=== PATIENT | female | born 1975 | race Caucasian/White ===

== ENCOUNTER 2017-09-05 12:43 | Outpatient (CLI) | payer OTHER | END 2017-09-05 12:44 | disposition home or self-care (01) | LOC: DTY/OP 12:43 | PROVIDERS: ATTEND Specialist | DX: Z01.818 Encounter for other preprocedural examination (principal); E66.01 Morbid (severe) obesity due to excess calories | CPT/HCPCS: 97802 ==

== ENCOUNTER 2017-10-12 09:58 | Outpatient (CLI) | payer MEDICARE, MEDICAID ==
--- NOTE | 2017-10-13 08:27 | EKG ---
Test Reason : Blood Pressure : / mmHG Vent. Rate : 072 BPM Atrial Rate : 072 BPM P-R Int : 146 ms QRS Dur : 084 ms QT Int : 392 ms P-R-T Axes : 039 063 -02 degrees QTc Int : 429 ms Poor data quality, interpretation may be adversely affected Normal sinus rhythm ST abnormality, possible digitalis effect /Nonspecific Abnormal QRS-T angle, consider primary T wave abnormality Abnormal ECG No previous ECGs available Confirmed by STEPHON NORWOOD ([id number]) on 10/13/2017 8:27:14 AM Referred By: JUDIE Confirmed By:STEPHON NORWOOD
== END 2017-10-12 09:59 | disposition home or self-care (01) ==
LOC: LABBT 09:58
PROVIDERS: ATTEND Specialist
DX: Z01.818 Encounter for other preprocedural examination (principal); E66.01 Morbid (severe) obesity due to excess calories; Z68.36 Body mass index [BMI] 36.0-36.9, adult; R94.31 Abnormal electrocardiogram [ECG] [EKG]
CPT/HCPCS: 93005; 93010

== ENCOUNTER 2017-10-12 12:00 | Inpatient (IN) | payer MEDICARE, MEDICAID ==
[2017-10-16] MEDS ORDERED: Bupivacaine/Epinephrine 0.25% 30 ML VIAL ONE (06:35)
[2017-10-16] MEDS ORDERED: Scopolamine 1.5 mg/72 hour Patch ONE (06:39)
[2017-10-16] MEDS ORDERED: Ketorolac Tromethamine 30 MG/ML VIAL ONE (06:39)
[2017-10-16] MEDS ORDERED: cefOXitin 2 GM, Syringe 1 ML in Sterile Water 10 ML SLOW IVP SCH ×4 (06:45)
[2017-10-16] MEDS ORDERED: Heparin 5,000 UNITS/ML VIAL ONE ×2 (07:07)
[2017-10-16] MEDS ORDERED: Fentanyl 250 MCG/5 ML VIAL ONE (07:28)
[2017-10-16] MEDS ORDERED: Midazolam HCl 2 mg/2 ml Vial ONE (07:28)
[2017-10-16] MEDS ORDERED: HYDROmorphone 0.5 MG/0.5 ML SYRINGE ONE (08:39)
[2017-10-16] MEDS ORDERED: Promethazine HCl 25 MG/ML VIAL IM PRN ×3 (08:43→10:49)
[2017-10-16] MEDS ORDERED: Ondansetron HCl/PF 4 MG/2 ML Vial IVP PRN ×3 (08:43→10:49)
[2017-10-16] MEDS ORDERED: Meperidine HCl/PF 25 MG/ML VIAL SLOW IVP PRN ×2 (08:43)
[2017-10-16] MEDS ORDERED: Promethazine HCl 25 MG/ML VIAL SLOW IVP PRN ×2 (08:43)
[2017-10-16] MEDS ORDERED: Meperidine HCl/PF 25 MG/ML VIAL ONE (09:11)
[2017-10-16] MEDS ORDERED: Fentanyl 100 MCG/2 ML VIAL ONE ×2 (09:11→09:41)
[2017-10-16] MEDS ORDERED: Dextrose 5% in Water 1,000 ML IV PRN (10:49)
[2017-10-16] MEDS ORDERED: Hydrocodone-Acetamin 15 ML UDCUP PO PRN (10:49)
[2017-10-16] MEDS ORDERED: diphenhydrAMINE 50 MG/ML VIAL IVP PRN (10:49)
[2017-10-16] MEDS ORDERED: Insulin Regular 300 UNITS/3 ML VIAL SC PRN (10:49)
[2017-10-16] MEDS ORDERED: Morphine 4 MG/ML VIAL SLOW IVP PRN ×2 (10:49)
[2017-10-16] MEDS ORDERED: Dextrose 50% Abboject 50 ML SYRINGE SLOW IVP PRN (10:49)
[2017-10-16] MEDS ORDERED: hydrALAZINE 20 MG/ML VIAL SLOW IVP PRN (10:49)
[2017-10-16] MEDS: Ketorolac Tromethamine 30 MG/ML VIAL IVP SCH ×2 (12:36→20:01)
[2017-10-16] MEDS: 1/2 NS w/KCL 20 mEq 1,000 ML IV SCH ×2 (12:38→20:02)
[2017-10-16] MEDS ORDERED: Ondansetron ODT 4 MG TAB PO PRN (15:19)
[2017-10-16] MEDS ORDERED: PROPOFOL 200 MG/20 ML VIAL ONE (16:30)
[2017-10-16] MEDS ORDERED: Lidocaine 1% PF 5 ML VIAL ONE (16:30)
[2017-10-16] MEDS ORDERED: Ondansetron HCl/PF 4 MG/2 ML Vial ONE (16:30)
[2017-10-16] MEDS ORDERED: Glycopyrrolate 0.2 MG/ML 5 ML SYRINGE ONE (16:30)
[2017-10-16 17:44] VITALS: BMI 34.4
[2017-10-16] MEDS ORDERED: Enoxaparin Sodium 40 MG/0.4 ML SYRINGE SC SCH (21:00)
[2017-10-16] MEDS ORDERED: clonazePAM 0.5 MG TAB PO SCH (21:00)
--- NOTE | 2017-10-16 21:45 | OP ---
DATE OF PROCEDURE: 10/16/2017 PREOPERATIVE DIAGNOSIS: Morbid obesity. POSTOPERATIVE DIAGNOSIS: Morbid obesity. SURGEON: Matthew Zepeda M.D. ANESTHESIA: General endotracheal. INDICATIONS: The patient is a 42-year-old white female. She presented with morbid obesity and sympt oms referable to her obesity. She has undergone preoperative evaluation and education and presents a t this time for sleeve gastrectomy. OPERATIVE PROCEDURE IN DETAIL: Informed consent was obtained. The patient was taken to the operatin g room where general endotracheal anesthesia was obtained with the patient in supine position. Abdom en was prepped with ChloraPrep and draped in sterile fashion. Local anesthetic was infiltrated and 5 -mm supraumbilical incision was created through which a Veress needle was passed into the peritoneal cavity and pneumoperitoneum established using carbon dioxide up to a pressure of 15 mmHg. A 5-mm tro car port was passed through the same incision. Laparoscopic camera was passed through this port. Un darcy direct vision, 4 additional ports were placed including bilateral subcostal 5 mm ports, a 12 mm r ight paramedian port and a 15 mm left paramedian port. A 5 mm epigastric incision was created throug h which Nathansen retractor was passed into the abdominal cavity and used to retract the left lobe of the liver. Attention was turned to the pylorus. This was identified and beginning about 4 cm proximal to the py lorus, the greater curvature was dissected using the LigaSure device, taking down all omental and vas cular tissue in an ascending fashion around to the angle of His. Meticulous hemostasis was maintaine d during this procedure. Posterior adhesions were taken down also using the LigaSure device. The le ft alan of the diaphragm was identified and gently dissected. The ViSiGi device was then advanced into the stomach where it was positioned at the pylorus under dir ect vision. The ViSiGi was then placed to suction, leading to complete gastric decompression and eas y visualization of the ViSiGi along the lesser curve. The gastrectomy was performed using a series of fires of the [place] stapler. The division was begun 4 cm from the pylorus. In an ascending fashion, the stapler was fired using using a green load foll owed by a gold load followed by a series of blue loads up to the angle of His. The ViSiGi was used a s a guide to calibrate the sleeve creation. Great care was taken to avoid narrowing of the incisura or the gastroesophageal junction. Once the transection was complete, the sleeve was inflated using the ViSiGi device while irrigating a long the staple line. There was no evidence of air leak or bleed along the staple line. The ViSiGi device was then taken out of the stomach and removed under direct vision. The resected segment of the stomach was removed through the 15 mm port site. The fascia at the 15 mm port was closed with 0 Vicryl suture using a GraNee needle in a ljmahm-na-cddom fashion. All irrigation within the abdomen was aspirated. The surgical site was thoroughly inspected and foun d to be hemostatic. All ports and instruments removed under direct vision. Pneumoperitoneum was car efully evacuated. Marcaine 0.25% with epinephrine was infiltrate in each port site and skin edges we re approximated with 4-0 Monocryl subcuticular suture. Dermabond was placed externally. There were no complications. Blood loss was negligible. Patient tolerated the procedure well and was taken to recovery room in stable condition.
[2017-10-16] MEDS: Buprenorphine 8mg/Naloxone 2mg per 1 FILM SL SCH (23:04)
[2017-10-17] MEDS: Ketorolac Tromethamine 30 MG/ML VIAL IVP SCH ×2 (01:41→06:21)
[2017-10-17] MEDS: 1/2 NS w/KCL 20 mEq 1,000 ML IV SCH (03:46)
[2017-10-17 05:03] LABS: #Lymphocytes 2.9 thou/uL (1.20-3.40); #Neutrophils 11.8 thou/uL (1.40-6.50); %Basophils 0.1 % (0.0-1.0); %Eosinophils 0.2 % (0.0-10.0); %Lymphocytes 18.3 % (21.0-51.0); %Monocytes 6.2 % (0.0-10.0); %Neutrophils 75.3 % (42.0-75.0); Hemoglobin 11.4 g/dL (12.0-16.0); Mean Corpuscular HGB CONC 34.3 g/dL (32.0-36.0); Mean Corpuscular Hemoglobin 30.6 pg (27.0-31.0); Mean Corpuscular Volume 89.4 fl (81.0-99.0); Mean Platelet Volume 7.6 fL (7.4-10.4); Platelet Count 224 thou/uL (130-400); RBC Distribution Width 11.4 % (11.5-14.5); Red Blood Cell (RBC) Count 3.72 mill/uL (4.20-5.40); White Blood Cell (WBC) Count 15.7 thou/uL (4.8-10.8)
[2017-10-17 05:14] LABS: Anion Gap 10 mmol/L (10-20); BUN (Urea Nitrogen) 8 mg/dL (7.0-18.7); Calc. Creatinine Clearance 134 mL/min (70-130); Calcium 8.5 mg/dL (7.8-10.44); Carbon Dioxide 25 mmol/L (22-29); Chloride 106 mmol/L (98-107); Estimated GFR-MDRD 81; Glucose 100 mg/dL (70-105); Potassium 4.9 mmol/L (3.5-5.1); Sodium 136 mmol/L (136-145)
[2017-10-17] MEDS ORDERED: Levothyroxine Sodium 25 MCG TAB PO SCH (06:00)
[2017-10-17] MEDS: Buprenorphine 8mg/Naloxone 2mg per 1 FILM SL SCH (06:12)
[2017-10-17 07:40] VITALS: BP 109/57; TEMP 98.4
[2017-10-17] MEDS ORDERED: Pantoprazole 40 MG VIAL IVP SCH ×2 (09:00)
[2017-10-21] MEDS ORDERED: BYDUREON SC SCH (09:00)
== END 2017-10-17 10:35 | disposition home or self-care (01) | DRG 621 ==
LOC: SURG A 10-16 06:04 → SURG B 10-16 10:48
PROVIDERS: ADMIT Specialist; ATTEND Specialist
PROC: 0DB64Z3 Excision of Stomach, Percutaneous Endoscopic Approach, Vertical (ICD-10-PCS; principal; 2017-10-16)
DX: E66.01 Morbid (severe) obesity due to excess calories (principal); E11.9 Type 2 diabetes mellitus without complications; Z68.36 Body mass index [BMI] 36.0-36.9, adult
CPT/HCPCS: 36415; 36416; 80048; 85025; 88307; 88312; 94760; 96374; A4216; C9113; J0131; J0694; J1170; J1644; J1650; J1885; J2001; J2175; J2250; J2270; J2405; J2704; J3010

== ENCOUNTER 2020-01-08 11:10 | Outpatient (CLI) | payer MEDICARE, MEDICAID ==
--- NOTE | 2020-01-08 12:31 | MMO ---
Bilateral MAMMO Bilat Screen [facility]. CLINICAL HISTORY: Patient is 44 years old and is seen for screening. The patient has the following family history of breast cancer: 2 maternal aunts. The patient has no personal history of cancer. VIEWS: The views performed were: bilateral craniocaudal with tomosynthesis and bilateral mediolateral oblique with tomosynthesis. FILMS COMPARED: The present examination has been compared to prior imaging studies performed at [facility] on 12/28/2014 and 05/22/2017. This study has been interpreted with the assistance of computer-aided detection. MAMMOGRAM FINDINGS: There are scattered fibroglandular densities. There are stable benign appearing calcifications seen in both breasts. There are no suspicious masses, suspicious calcifications, or new areas of architectural distortion. IMPRESSION: THERE IS NO MAMMOGRAPHIC EVIDENCE OF MALIGNANCY. A ROUTINE FOLLOW-UP MAMMOGRAM IN 1 YEAR IS RECOMMENDED. THE RESULTS OF THIS EXAM WERE SENT TO THE PATIENT. ACR BI-RADS Category 2 - Benign finding MAMMOGRAPHY NOTE: 1. A negative mammogram report should not delay a biopsy if a dominant of clinically suspicious mass is present. 2. Approximately 10% to 15% of breast cancers are not detected by mammography. 3. Adenosis and dense breasts may obscure an underlying neoplasm. Reported by: CONCHITA CHIANG MD Electonically Signed: [id number]
== END 2020-01-08 11:11 | disposition home or self-care (01) ==
LOC: BICMAMMO 11:10
PROVIDERS: ATTEND Family Medicine
DX: Z12.31 Encounter for screening mammogram for malignant neoplasm of breast (principal); Z80.3 Family history of malignant neoplasm of breast
CPT/HCPCS: 77063; 77067

== ENCOUNTER 2022-05-18 10:52 | Outpatient (CLI) | payer OTHER | END 2022-05-18 10:53 | disposition home or self-care (01) | LOC: BICRAD 10:52 | PROVIDERS: ATTEND Family Medicine | DX: R63.4 Abnormal weight loss (principal) | CPT/HCPCS: 71046 ==

== ENCOUNTER 2022-07-10 09:38 | Outpatient (CLI) | payer OTHER | END 2022-07-10 09:39 | disposition home or self-care (01) | LOC: BICMAMMO 09:38 | PROVIDERS: ATTEND Family Medicine | DX: Z12.31 Encounter for screening mammogram for malignant neoplasm of breast (principal); M85.80 Other specified disorders of bone density and structure, unspecified site; Z80.3 Family history of malignant neoplasm of breast; Z78.0 Asymptomatic menopausal state | CPT/HCPCS: 77063; 77067; 77080 ==

== ENCOUNTER 2025-02-19 10:28 | Emergency (ER) | payer OTHER | END 2025-02-19 11:23 | LOC: ERS 10:28 | DX: Z53.21 Procedure and treatment not carried out due to patient leaving prior to being seen by health care provider (principal) ==